=== PATIENT | male | born 1985 | race African-American/Black ===

== ENCOUNTER 2020-02-02 18:08 | Emergency (ER) | payer OTHER ==
[~2020-02-02] VITALS: Ht 185.4 cm; Wt 79.5 kg
--- NOTE | 2020-02-02 18:37 | NUR ---
INTERMITTENT LLQ ABD PAIN FOR ONE MONTH WITH N/V. PT TEARFUL AND STATES THAT HE IS IN THE PROCESS OF GOING THROUGH A DIVORCE WITH HIS . PT ADMITS TO USING METH AND SMOKING MARIJUANA "2-3 DAYS AGO". PT STATES THAT HE IS NAUSEATED AND IS HAVING LLQ PAIN. PLACED PT ON MONITOR. WILL CONTINUE TO MONITOR PT.
[2020-02-02] MEDS ORDERED: ONDANSETRON ODT 4 MG PO ONE (19:00)
[2020-02-02] MEDS ORDERED: KETOROLAC 30 MG/1 ML IM ONE (19:00)
[2020-02-02] MEDS ORDERED: KETOROLAC 30 MG/1 ML ONE (19:02)
[2020-02-02] MEDS ORDERED: ONDANSETRON ODT 4 MG ONE (19:02)
--- NOTE | 2020-02-02 19:08 | NUR ---
upon entering room the floor is found to be covered in emisis. pt stated he dropped his emisis bag and it spilled. floor partially cleaned and pt moved from room 10 to room 13. charge made aware, housekeeping contacted. provider in room to assess. pt current pain level of 6/10. pt medicated per order and to reassess. pt pain goal of 2 or 3.
[2020-02-02 19:31] LABS: BASOPHILS # (AUTO) 0.02 x10^3/uL (0-0.1); BASOPHILS % (AUTO) 0 % (0-1); EOSINOPHILS # (AUTO) 0.16 x10^3/uL (0-0.4); EOSINOPHILS % (AUTO) 2 % (1-7); LYMPHOCYTES # (AUTO) 1.39 x10^3/uL (1-3.4); LYMPHOCYTES % (AUTO) 15 % (22-44); MD NO; MEAN CORPUSCULAR HEMOGLOBIN 28.6 pg (27.5-34.5); MEAN CORPUSCULAR HGB CONC 32.8 g/dL (33.2-36.2); MEAN CORPUSCULAR VOLUME 87.2 fL (81-97); MEAN PLATELET VOLUME 7.6 fL (7.4-10.4); MONOCYTES # (AUTO) 0.74 x10^3/uL (0.2-0.8); MONOCYTES % (AUTO) 8 % (2-9); NEUTROPHILS # (AUTO) 6.73 x10^3/uL (1.8-6.8); NEUTROPHILS % (AUTO) 75 % (42-75); PLATELET COUNT 430 x10^3/uL (130-400); RED BLOOD COUNT 4.82 x10^6/uL (4.38-5.82); RED CELL DISTRIBUTION WIDTH 14.7 % (9.4-14.8)
[2020-02-02 19:43] LABS: ALANINE AMINOTRANSFERASE 23 U/L (12-78); ALBUMIN 3.7 g/dL (3.4-5.0); ANION GAP 5 mmol/L (5-15); CALCIUM 8.9 mg/dL (8.5-10.1); CHLORIDE 102 mmol/L (98-107); CREATININE 1.11 mg/dL (0.7-1.3)
[2020-02-02 19:45] LABS: ALKALINE PHOSPHATASE 61 U/L (45-117); BILIRUBIN,TOTAL 0.4 mg/dL (0.2-1.0); TOTAL PROTEIN 8.2 g/dL (6.4-8.2)
[2020-02-02 20:04] VITALS: BP 132/79
== END 2020-02-02 20:34 | disposition home or self-care (01) ==
LOC: ED 19:33
DX: K29.00 Acute gastritis without bleeding (principal); Z72.9 Problem related to lifestyle, unspecified; F15.10 Other stimulant abuse, uncomplicated; F10.10 Alcohol abuse, uncomplicated; F17.210 Nicotine dependence, cigarettes, uncomplicated
CPT/HCPCS: 36415; 80053; 83690; 85025; 96372; 99283; J1885; Q0162

== ENCOUNTER 2020-07-11 20:37 | Emergency (ER) | payer MEDICAID ==
[~2020-07-11] VITALS: Ht 185.4 cm; Wt 82.9 kg
[2020-07-11] MEDS ORDERED: LIDOCAINE 1%, 10ML INFIL ONE (21:30)
--- NOTE | 2020-07-11 22:20 | NUR ---
late entry d/t pt care: pt came into ed today due to swelling on right hand, states its swollen and started hurting after he cut it skateboarding. CMS intact. nad denies additional questions or needs at this time. pt placed on spo2/bp monitoring. wctm.
[2020-07-11] MEDS ORDERED: LIDOCAINE-MPF 1%, 5ML ONE (22:39)
[2020-07-11] MEDS ORDERED: CLINDAMYCIN 300 MG CAPSULE ONE (22:46)
[2020-07-11] MEDS ORDERED: HYDROcodone/APAP 5/325 TABLET ONE (22:47)
[2020-07-11] MEDS ORDERED: CLINDAMYCIN 300 MG CAPSULE PO ONE (23:00)
[2020-07-11] MEDS ORDERED: HYDROcodone/APAP 5/325 TABLET PO ONE (23:00)
[2020-07-11 23:52] VITALS: BP 120/68
--- NOTE | 2020-07-11 23:55 | NUR ---
Patient given discharge instructions and they have confirmed that they understand the instructions. Patient ambulatory with steady gait. nad, denies additional questions or needs.
== END 2020-07-12 00:05 | disposition home or self-care (01) ==
LOC: ED 23:57
DX: L03.011 Cellulitis of right finger (principal); M79.89 Other specified soft tissue disorders; F17.210 Nicotine dependence, cigarettes, uncomplicated
CPT/HCPCS: 10060; 99283; 99406

== ENCOUNTER 2020-09-30 23:44 | Emergency (ER) | payer MEDICAID ==
[~2020-09-30] VITALS: Ht 182.9 cm; Wt 80.8 kg
[2020-10-01] MEDS ORDERED: ONDANSETRON ODT 4 MG PO ONE (00:30)
[2020-10-01] MEDS ORDERED: MAALOX/HYOSCYAMINE/LIDOCAINE 45 ML BTL PO ONE (00:30)
[2020-10-01] MEDS ORDERED: MAALOX/HYOSCYAMINE/LIDOCAINE 45 ML BTL ONE (00:32)
[2020-10-01] MEDS ORDERED: ONDANSETRON ODT 4 MG ONE (00:32)
[2020-10-01] MEDS ORDERED: SODIUM CHLORIDE FLUSH 10ML SYR IVF ONE (01:00)
[2020-10-01] MEDS ORDERED: ONDANSETRON 2MG/ML, 2ML IVPush ONE (01:00)
[2020-10-01] MEDS ORDERED: MORPHINE SULFATE 4 MG/ML, 1ML IVPush ONE (01:00)
--- NOTE | 2020-10-01 01:12 | NUR ---
patient resting in bed, drowsy, but responding to questions. VS remain stable but HR in the 40's-50's. denies nausea and pain at this time. in NAD. resting comfortably with eyes closed. will continue to monitor. safety maintained. call grande in reach
[2020-10-01 01:15] LABS: MEAN CORPUSCULAR HEMOGLOBIN 22.4 pg (27.5-34.5); MEAN CORPUSCULAR HGB CONC 31.6 g/dL (33.2-36.2); MEAN PLATELET VOLUME 7.1 fL (7.4-10.4); PLATELET COUNT 490 x10^3/uL (130-400); RED BLOOD COUNT 4.32 x10^6/uL (4.38-5.82); RED CELL DISTRIBUTION WIDTH 18.6 % (9.4-14.8)
[2020-10-01 01:20] LABS: ALANINE AMINOTRANSFERASE 20 U/L (12-78); ALBUMIN 3.2 g/dL (3.4-5.0); ANION GAP 7 mmol/L (5-15); CALCIUM 8.4 mg/dL (8.5-10.1); CHLORIDE 104 mmol/L (98-107); CREATININE 0.99 mg/dL (0.7-1.3)
[2020-10-01 01:22] LABS: ALKALINE PHOSPHATASE 66 U/L (45-117); BILIRUBIN,TOTAL 0.3 mg/dL (0.2-1.0); TOTAL PROTEIN 7.7 g/dL (6.4-8.2)
[2020-10-01 01:53] LABS: MD YES
--- NOTE | 2020-10-01 02:10 | NUR ---
patient up in bed in position, guarded. patient states his pain came on suddenly while he was asleep. woke him up. will place IV and admin ordered medications
[2020-10-01] MEDS ORDERED: ONDANSETRON 2MG/ML, 2ML ONE (02:15)
[2020-10-01] MEDS ORDERED: MORPHINE SULFATE 4 MG/ML, 1ML ONE (02:16)
[2020-10-01 02:29] LABS: EOS#(MANUAL) 0.13 x10^3/uL (0.0-0.4); EOS% (MANUAL) 1 % (1-7); LYMPH#(MANUAL) 1.76 x10^3/uL (1-3.4); LYMPHS% (MANUAL) 14 % (22-44); MONOS#(MANUAL) 1.13 x10^3/uL (0.3-2.7); MONOS% (MANUAL) 9 % (2-9); SEG#(MANUAL) 9.58 x10^3/uL (1.8-6.8); SEGS% (MANUAL) 76 % (42-75)
[2020-10-01 02:30] LABS: <PLATELET ESTIMATE> INCREASED; ANISOCYTOSIS 1+; HYPOCHROMIA 1+; MICROCYTOSIS 1+; OVALOCYTES 1+; POLYCHROMASIA 1+; TARGET CELLS 1+
[2020-10-01 02:31] LABS: SMALL PLATELETS 1+
--- NOTE | 2020-10-01 02:35 | NUR ---
patient agreed for IV for pain medications and antinausea medication. patient was found in position guarding. patient states "it comes and goes". patient objectively looked uncomfortable. iv placed and meds administered. MD notified of reason why ordered meds werent given when ordered d/t pt stating he had no pain or nausea. Dr. Calvo at bedside and explained that patient was anemic. Also, Dr. Calvo recommended a rectal exam to assess if patient was bleeding due to anemia being new finding since last seen in ER. patient declined rectal exam. will continue to monitor. call grande in reach. safety maintained
--- NOTE | 2020-10-01 02:57 | NUR ---
patient resting with eyes closed on L lateral side. in NAD. VS remain stable. will continue to monitor.
[2020-10-01 03:57] VITALS: BP 128/78
== END 2020-10-01 03:59 | disposition home or self-care (01) ==
LOC: ED 10-01 03:33
DX: K29.00 Acute gastritis without bleeding (principal); D64.9 Anemia, unspecified; R10.12 Left upper quadrant pain; F17.210 Nicotine dependence, cigarettes, uncomplicated
CPT/HCPCS: 36415; 80053; 83690; 85025; 96374; 96375; 99285; J2270; J2405; Q0162

== ENCOUNTER 2020-10-06 12:36 | Emergency (ER) | payer MEDICAID ==
[~2020-10-06] VITALS: Ht 185.4 cm; Wt 76.9 kg
--- NOTE | 2020-10-06 13:23 | NUR ---
PT C/O LUQ ABD PAIN FOR A FEW MONTHS. SEEN HERE ABOUT A WEEK AGO DX GASTRITIS. PT COMPLIANT WITH MEDS, PAIN NOT GETTING BETTER. CONNECTED TO MONITORING. CALL LIGHT IN REACH. WARM BLANKET PROVIDED.
--- NOTE | 2020-10-06 13:35 | NUR ---
PT AMBULATED TO RESTROOM WITH STEADY GAIT TO PROVIDE URINE SAMPLE. UA ORDERED PER PROTOCOL AND SENT TO LAB.
[2020-10-06 13:47] LABS: MICROSCOPIC INDICATED
[2020-10-06] MEDS ORDERED: PANTOPRAZOLE 40MG TABLET ONE (13:59)
[2020-10-06] MEDS ORDERED: MAALOX/HYOSCYAMINE/LIDOCAINE 45 ML BTL ONE (13:59)
[2020-10-06] MEDS ORDERED: ONDANSETRON ODT 4 MG ONE (13:59)
[2020-10-06] MEDS ORDERED: PANTOPRAZOLE 20MG TABLET PO ONE (14:00)
[2020-10-06] MEDS ORDERED: MAALOX/HYOSCYAMINE/LIDOCAINE 45 ML BTL PO ONE (14:00)
[2020-10-06] MEDS ORDERED: PANTOPRAZOLE 40MG TABLET PO ONE (14:00)
[2020-10-06] MEDS ORDERED: ONDANSETRON ODT 4 MG PO PRN (14:00)
--- NOTE | 2020-10-06 14:04 | NUR ---
MEDS ADMIN PER NOV. LAB AT BEDSIDE.
[2020-10-06 14:13] LABS: MEAN CORPUSCULAR HEMOGLOBIN 22.2 pg (27.5-34.5); MEAN CORPUSCULAR HGB CONC 31.5 g/dL (33.2-36.2); MEAN PLATELET VOLUME 6.7 fL (7.4-10.4); PLATELET COUNT 633 x10^3/uL (130-400); RED BLOOD COUNT 4.57 x10^6/uL (4.38-5.82); RED CELL DISTRIBUTION WIDTH 19.6 % (9.4-14.8)
[2020-10-06 14:22] LABS: ALANINE AMINOTRANSFERASE 17 U/L (12-78); ALBUMIN 3.3 g/dL (3.4-5.0); ANION GAP 6 mmol/L (5-15); CALCIUM 8.8 mg/dL (8.5-10.1); CHLORIDE 106 mmol/L (98-107); CREATININE 0.96 mg/dL (0.7-1.3)
[2020-10-06 14:25] LABS: ALKALINE PHOSPHATASE 69 U/L (45-117); BILIRUBIN,TOTAL 0.3 mg/dL (0.2-1.0); TOTAL PROTEIN 8.2 g/dL (6.4-8.2)
--- NOTE | 2020-10-06 14:44 | NUR ---
US AT BEDSIDE
[2020-10-06 14:54] LABS: MD YES
[2020-10-06 14:58] LABS: EOS#(MANUAL) 0.25 x10^3/uL (0.0-0.4); EOS% (MANUAL) 2 % (1-7); LYMPH#(MANUAL) 2.11 x10^3/uL (1-3.4); LYMPHS% (MANUAL) 17 % (22-44); MONOS#(MANUAL) 0.25 x10^3/uL (0.3-2.7); MONOS% (MANUAL) 2 % (2-9); SEGS% (MANUAL) 79 % (42-75)
[2020-10-06 14:59] LABS: ACANTHOCYTES 1+; ANISOCYTOSIS 1+; MICROCYTOSIS 1+; SCHISTOCYTES 1+
[2020-10-06 15:07] LABS: CRENATED 1+; HYPOCHROMIA 1+; OVALOCYTES 1+; POLYCHROMASIA 1+; TARGET CELLS 1+
[2020-10-06 15:10] LABS: <PLATELET ESTIMATE> INCREASED; SMALL PLATELETS 1+
--- NOTE | 2020-10-06 15:13 | NUR ---
ALL RESULTS ARE BACK AT THIS TIME. CHART UP FOR RECHECK.
[2020-10-06 15:19] VITALS: BP 125/72
--- NOTE | 2020-10-06 15:19 | NUR ---
PT RESTING COMFORTABLY ON GURNEY. CHERYL.
--- NOTE | 2020-10-06 15:58 | NUR ---
MD AT BEDSIDE TO UPDATE PT ON POC.
== END 2020-10-06 16:53 | disposition home or self-care (01) ==
LOC: ED 13:13
DX: K25.0 Acute gastric ulcer with hemorrhage (principal); R10.13 Epigastric pain; R11.0 Nausea; F17.200 Nicotine dependence, unspecified, uncomplicated
CPT/HCPCS: 36415; 76700; 80053; 81001; 83690; 85025; 99284; Q0162

== ENCOUNTER 2020-12-11 00:49 | Emergency (ER) | payer MEDICAID ==
[~2020-12-11] VITALS: Ht 185.4 cm; Wt 81.0 kg
[2020-12-11] MEDS ORDERED: MAALOX/HYOSCYAMINE/LIDOCAINE 45 ML BTL ONE (01:05)
[2020-12-11] MEDS ORDERED: FAMOTIDINE 20 MG TABLET ONE (01:05)
[2020-12-11] MEDS ORDERED: FAMOTIDINE 20 MG TABLET PO/NG ONE (01:30)
[2020-12-11] MEDS ORDERED: MAALOX/HYOSCYAMINE/LIDOCAINE 45 ML BTL PO ONE (01:30)
[2020-12-11 01:40] VITALS: BP 140/91
--- NOTE | 2020-12-11 01:40 | NUR ---
PT IN BED ON SULFURIC [employer]PERVIS[employer], WITH BED RAILS UP BILATERALLY AND CALL LIGHT IN HAND. PT STATES THAT PAIN IS BETTER BUT STILL THERE IN THE MIDDLE OF CHEST, PT STATES HE COULD GO HOME AT THIS TIME. RN OFFERED PT SOME SALTINE CRACKERS, PT ACCEPTS AND VERBALIZES APPRECIATION FOR CARES AND CONCERN. PT WILL TRY THE CRACKERS TO SEE IF THEY HELP AND THEN REASSESS. NO SIGNS OR SYMPTOMS OF ACUTE DISTRESS NOTED RESPIRATIONS EVEN AND UNLABORED
== END 2020-12-11 02:35 | disposition home or self-care (01) ==
LOC: ED 01:19
DX: K21.00 Gastro-esophageal reflux disease with esophagitis, without bleeding (principal); K29.00 Acute gastritis without bleeding; R10.13 Epigastric pain
CPT/HCPCS: 93005; 99283